=== PATIENT | male | born 1955 | race Caucasian/White ===

== ENCOUNTER 2016-08-24 04:19 | Emergency (ER) | payer MEDICARE ==
[~2016-08-24] VITALS: Ht 175.3 cm; Wt 107.9 kg
[2016-08-24] MEDS ORDERED: HYDROmorphone 1 MG/ML, 1ML ONE (05:23)
[2016-08-24] MEDS ORDERED: HYDROmorphone 1 MG/ML, 1ML IM ONE (05:30)
[2016-08-24 06:00] LABS: BLOOD UREA NITROGEN 15 mg/dL (7-18)
[2016-08-24 07:28] VITALS: BP 111/76
== END 2016-08-24 07:30 | disposition home or self-care (01) ==
LOC: ED 05:08
DX: M54.6 Pain in thoracic spine (principal); R09.1 Pleurisy; Z86.73 Personal history of transient ischemic attack (TIA), and cerebral infarction without residual deficits; M19.90 Unspecified osteoarthritis, unspecified site
CPT/HCPCS: 36415; 71020; 80048; 82040; 85025; 85379; 93005; 96372; 99285; J1170

== ENCOUNTER 2016-09-16 22:46 | Inpatient (IN) | payer MEDICARE ==
[~2016-09-16] VITALS: Ht 175.3 cm; Wt 108.0 kg
[2016-09-16] MEDS ORDERED: SODIUM CHLORIDE FLUSH 10ML SYR IVF ONE (23:30)
[2016-09-16 23:37] LABS: ASPARTATE AMINO TRANSFERASE 24 U/L (15-37); BLOOD UREA NITROGEN 22 mg/dL (7-18)
[2016-09-16 23:43] LABS: IS PT STATUS REG ER OR PRE ER? YES
[2016-09-17] MEDS ORDERED: SODIUM CHLORIDE 0.9% 1,000ML IVBOLUS ONE
[2016-09-17] MEDS ORDERED: MORPHINE SULFATE 4 MG/ML, 1ML IVPush PRN (01:00)
[2016-09-17] MEDS ORDERED: ASPIRIN 81 MG TABLET CHEW PO ONE (01:00)
[2016-09-17] MEDS ORDERED: ONDANSETRON 2MG/ML, 2ML IVPush ONE (01:00)
[2016-09-17] MEDS ORDERED: SODIUM CHLORIDE FLUSH 10ML SYR IVF ONE (01:00)
[2016-09-17] MEDS ORDERED: ONDANSETRON 2MG/ML, 2ML ONE (01:01)
[2016-09-17] MEDS ORDERED: ASPIRIN 81 MG TABLET CHEW ONE (01:01)
[2016-09-17] MEDS ORDERED: MORPHINE SULFATE 4 MG/ML, 1ML ONE (01:01)
[2016-09-17 02:24] VITALS: BP 153/82
[2016-09-17] MEDS ORDERED: HYDROcodone/APAP 5/325 TABLET PO PRN (02:30)
[2016-09-17] MEDS ORDERED: NITROGLYCERIN 0.4 MG BOTTLE (25 TABS) SL PRN (02:30)
[2016-09-17] MEDS ORDERED: ENOXAPARIN 40 MG/0.4 ML SQ SCH (02:30)
[2016-09-17] MEDS ORDERED: morphine SULFATE 10 MG/ML, 1ML IVPush PRN (02:30)
[2016-09-17] MEDS ORDERED: NITROGLYCERIN 0.4 MG/SPRAY SL PRN (02:30)
[2016-09-17] MEDS ORDERED: ONDANSETRON 2MG/ML, 2ML IVPush PRN (02:30)
[2016-09-17] MEDS ORDERED: FEXO60TA24 PO (02:38)
[2016-09-17] MEDS ORDERED: ASPI-647 PO (02:39)
[2016-09-17] MEDS ORDERED: ENOXAPARIN 40 MG/0.4 ML ONE (02:49)
[2016-09-17 02:58] LABS: ASPARTATE AMINO TRANSFERASE 16 U/L (15-37); BLOOD UREA NITROGEN 20 mg/dL (7-18)
[2016-09-17 03:05] LABS: IS PT STATUS REG ER OR PRE ER? NO
[2016-09-17] MEDS ORDERED: OMNIPAQUE 350 MG/ML, 100ML BOTTLE ONE (04:35)
[2016-09-17 06:40] VITALS: BP 131/69
[2016-09-17 08:07] LABS: IS PT STATUS REG ER OR PRE ER? NO
[2016-09-17] MEDS ORDERED: REGADENOSON 0.4 MG/5 ML SYRINGE ONE (09:10)
[2016-09-17 12:40] VITALS: BP 121/74
== END 2016-09-17 16:34 | disposition home or self-care (01) | DRG 392 ==
LOC: ED 23:01 → EDIP 09-17 01:16 → 5SO 09-17 02:05 → DCLOUNGE 09-17 16:30
PROVIDERS: ADMIT Internal Medicine; ATTEND Internal Medicine
DX: K21.9 Gastro-esophageal reflux disease without esophagitis (principal); D72.829 Elevated white blood cell count, unspecified; M17.0 Bilateral primary osteoarthritis of knee; Z86.73 Personal history of transient ischemic attack (TIA), and cerebral infarction without residual deficits; Z87.891 Personal history of nicotine dependence; R07.89 Other chest pain
CPT/HCPCS: 36415; 71010; 71275; 78452; 80053; 80061; 83880; 84443; 84484; 85025; 93005; 93017; 93306; 96361; 96374; 96375; J1650; J2405; J2785; Q9967; A9502; C9898; J7030

== ENCOUNTER 2017-05-08 12:49 | Emergency (ER) | payer MEDICARE ==
[~2017-05-08] VITALS: Ht 177.8 cm; Wt 109.8 kg
[~2017-05-08 12:49] MED LIST: ASPI-647 PO; FEXO60TA24 PO
[2017-05-08 13:04] VITALS: BP 145/85
[2017-05-08 13:50] LABS: BASOPHILS % (AUTO) 1 % (0-1); EOSINOPHILS # (AUTO) 0.15 x10^3/uL (0-0.4); EOSINOPHILS % (AUTO) 2 % (1-7); LYMPHOCYTES # (AUTO) 2.39 x10^3/uL (1-3.4); LYMPHOCYTES % (AUTO) 24 % (22-44); MD NO; MEAN CORPUSCULAR HEMOGLOBIN 32.1 pg (27.5-34.5); MEAN CORPUSCULAR HGB CONC 34.4 g/dL (33.2-36.2); MEAN CORPUSCULAR VOLUME 93.4 fL (81-97); MEAN PLATELET VOLUME 7.8 fL (7.4-10.4); MONOCYTES # (AUTO) 1.06 x10^3/uL (0.2-0.8); MONOCYTES % (AUTO) 11 % (2-9); NEUTROPHILS # (AUTO) 6.25 x10^3/uL (1.8-6.8); NEUTROPHILS % (AUTO) 63 % (42-75); PLATELET COUNT 273 x10^3/uL (130-400); RED BLOOD COUNT 4.87 x10^6/uL (4.38-5.82); RED CELL DISTRIBUTION WIDTH 14.7 % (9.4-14.8)
[2017-05-08 14:53] LABS: ALBUMIN 3.6 g/dL (3.4-5.0); ANION GAP 11 mmol/L (5-15); CALCIUM 8.5 mg/dL (8.5-10.1); CHLORIDE 110 mmol/L (98-107); CREATININE 1.06 mg/dL (0.7-1.3)
[2017-05-08] MEDS ORDERED: KETOROLAC 30 MG/1 ML IM ONE (15:30)
[2017-05-08] MEDS ORDERED: KETOROLAC 30 MG/1 ML ONE (15:36)
== END 2017-05-08 15:51 | disposition home or self-care (01) ==
LOC: ED 15:10
DX: M79.671 Pain in right foot (principal); M19.071 Primary osteoarthritis, right ankle and foot; Z86.73 Personal history of transient ischemic attack (TIA), and cerebral infarction without residual deficits
CPT/HCPCS: 36415; 73630; 80048; 82040; 84550; 85025; 96372; 99285; J1885

== ENCOUNTER 2018-09-11 11:09 | Emergency (ER) | payer MEDICARE ==
[~2018-09-11] VITALS: Ht 177.8 cm; Wt 110.8 kg
[2018-09-11 11:11] VITALS: BP 163/95
== END 2018-09-11 13:21 | disposition home or self-care (01) ==
LOC: ED 13:02
DX: S92.425B Nondisplaced fracture of distal phalanx of left great toe, initial encounter for open fracture (principal); M19.90 Unspecified osteoarthritis, unspecified site; W20.8XXA Other cause of strike by thrown, projected or falling object, initial encounter; Y93.89 Activity, other specified; Y92.89 Other specified places as the place of occurrence of the external cause; Y99.8 Other external cause status
CPT/HCPCS: 11760; 73630; 90471; 90715; 96372; 99284; J0690; J3490; 12042

== ENCOUNTER 2018-09-29 14:42 | Emergency (ER) | payer MEDICARE ==
[~2018-09-29] VITALS: Ht 177.8 cm; Wt 112.0 kg
[2018-09-29 15:00] VITALS: BP 128/82
--- NOTE | 2018-09-29 15:20 | NUR ---
PT WITH SUTURES IN L GREAT TOE FROM DROPPING A DOOR ON HIS TOE. HE HAD SUTURES PLACED HERE AND STATES HE NEEDS THEM REMOVED.
--- NOTE | 2018-09-29 15:55 | NUR ---
Toe cleaned. Sutures removed. Abx ointment and steri strips applied. Patient/Caregiver given discharge instructions and they have confirmed that they understand the instructions. Patient ambulatory with steady gait. Pt left with all personal belongings.
== END 2018-09-29 15:59 | disposition home or self-care (01) ==
LOC: ED 15:50
DX: S91.111D Laceration without foreign body of right great toe without damage to nail, subsequent encounter (principal); Z86.73 Personal history of transient ischemic attack (TIA), and cerebral infarction without residual deficits; X58.XXXD Exposure to other specified factors, subsequent encounter
CPT/HCPCS: 99282

== ENCOUNTER 2020-05-19 11:40 | Emergency (ER) | payer MEDICARE ==
[~2020-05-19] VITALS: Ht 177.8 cm; Wt 114.9 kg
--- NOTE | 2020-05-19 12:16 | NUR ---
RT HAND PAIN/SWELLING X COUPLE DAYS, HX ARTHRITIS, DENIES INJURY OR HX GOUT
[2020-05-19 13:24] LABS: BASOPHILS % (AUTO) 1 % (0-1); EOSINOPHILS % (AUTO) 1 % (1-7); LYMPHOCYTES % (AUTO) 29 % (22-44); MEAN CORPUSCULAR HGB CONC 33.8 g/dL (33.2-36.2); MEAN PLATELET VOLUME 7.4 fL (7.4-10.4); MONOCYTES % (AUTO) 13 % (2-9); NEUTROPHILS % (AUTO) 57 % (42-75); PLATELET COUNT 290 x10^3/uL (130-400); RED BLOOD COUNT 5.21 x10^6/uL (4.38-5.82)
[2020-05-19 13:27] LABS: MD NO
[2020-05-19 13:36] LABS: ALBUMIN 3.6 g/dL (3.4-5.0); ANION GAP 7 mmol/L (5-15); CALCIUM 8.4 mg/dL (8.5-10.1); CHLORIDE 111 mmol/L (98-107); CREATININE 0.95 mg/dL (0.7-1.3)
[2020-05-19] MEDS ORDERED: COLCHICINE 0.6 MG CAPSULE ONE (14:43)
[2020-05-19] MEDS ORDERED: HYDROcodone/APAP 5/325 TABLET ONE (14:43)
--- NOTE | 2020-05-19 14:48 | NUR ---
PT RESTING COMFORTABLY WITH ICE PACK AND FRIEND AT BEDSIDE. ICE PACK APPLIED TO HAND AND PILLOW PROVIDED FOR ELEVATION. CALL LIGHT WITHIN REACH.
[2020-05-19] MEDS ORDERED: HYDROcodone/APAP 5/325 TABLET PO ONE (15:00)
[2020-05-19] MEDS ORDERED: COLCHICINE 0.6 MG CAPSULE PO ONE (15:00)
--- NOTE | 2020-05-19 15:14 | NUR ---
PT WANTED TO TAKE THE SPLINT WITH HIM BUT IT UNCOMFORTABLE SO HE REMOVED IT BEFORE D/C. CMS INTACT
[2020-05-19 15:18] VITALS: BP 134/86
== END 2020-05-19 15:41 | disposition home or self-care (01) ==
LOC: ED 15:20
DX: M79.644 Pain in right finger(s) (principal); M79.641 Pain in right hand; M79.89 Other specified soft tissue disorders; Z79.899 Other long term (current) drug therapy
CPT/HCPCS: 29130; 36415; 80048; 82040; 84550; 85025; 99284